=== PATIENT | female | born 1940 | race Caucasian/White ===

== ENCOUNTER 2019-10-01 08:42 | Observation (INO) ==
[2019-10-01] MEDS ORDERED: Isovue-370 500 ML BOTTLE IVP ONE (08:59)
[2019-10-01] MEDS ORDERED: Ondansetron 4 MG/2 ML VIAL IVP ONE (09:20)
[2019-10-01] MEDS ORDERED: *HR* FentaNYL (PF) 100 MCG/2 ML VIAL IVP ONE (09:20)
[2019-10-01 09:59] LABS: Basophils % 0.4 %; Eosinophils % 0.3 %; Hematocrit 41.8 % (35.3-44.9); Hemoglobin 13.6 g/dL (11.5-15.4); Immature Granulocytes % 0.3 % (0-4); Lymphocytes # 1.3 K/mcL (0.6-4.6); Lymphocytes % 13.9 %; Mean Corpuscular HGB Conc 32.5 g/dL (31.6-35.5); Mean Corpuscular Volume 95.2 fL (83.0-100.0); Mean Platelet Volume 10.2 fL (9.4-12.4); Monocytes # 0.4 K/mcL (0.0-1.3); Monocytes % 4.7 %; Neutrophils # 7.6 K/mcL (1.6-8.9); Platelet Count 166 K/mcL (140-400); Red Blood Count 4.39 M/mcL (3.82-4.97); Red Cell Distribution Width 11.9 % (11.5-14.5); Segmented Neutrophils % 80.4 %; White Blood Count 9.5 K/mcL (4.3-11.1)
[2019-10-01 10:03] LABS: INR 1.6; Prothrombin Time 18.2 Seconds (9.4-12.1)
[2019-10-01 10:06] LABS: Activated Partial Thrombo Time 36.9 Seconds (26.0-36.0)
[2019-10-01 10:20] LABS: Alanine Aminotransferase 253 Units/L (7-52); Albumin/Globulin Ratio 1.5 (1.1-2.2); Alkaline Phosphatase 122 Units/L (34-104); Aspartate Amino Transferase 410 Units/L (13-39); BUN/Creatinine Ratio 41 (6-26); Bilirubin,Direct 0.6 mg/dL (0.0-0.2); Bilirubin,Indirect 0.6 mg/dL (0.0-1.0); Bilirubin,Total 1.2 mg/dL (0.3-1.0); Blood Urea Nitrogen 30 mg/dL (8-23); Carbon Dioxide 27 mEq/L (23-29); Chloride 106 mEq/L (98-107); Globulin 2.7 g/dL (2.4-3.5); Glucose 113 mg/dL (70-105); Lipase 37 Units/L (11-82); Osmolality,Calculated 299 (280-300); Sodium 141 mEq/L (136-145); Total Protein 6.7 g/dL (6.4-8.9); Troponin I < 0.03 ng/mL (< 0.04); eGFR For African Americans > 60 (> 60); eGFR For Non-African Americans > 60 (> 60)
[2019-10-01] MEDS ORDERED: Aspirin 81 MG TAB.CHEW PO STA (12:00)
[2019-10-01] MEDS ORDERED: Naloxone 0.4 MG/ML INJ IVP PRN (12:48)
[2019-10-01] MEDS ORDERED: Ondansetron 4 MG/2 ML VIAL IVP PRN (12:48)
[2019-10-01] MEDS ORDERED: Acetaminophen 325 MG TABLET PO PRN (12:49)
[2019-10-01] MEDS ORDERED: *HR* Metoprolol 5 MG/5 ML VIAL IVP PRN (13:58)
[2019-10-01] MEDS: 0.9 % Sodium Chloride 1,000 ML IVC SCH (15:30)
[2019-10-01] MEDS: Gabapentin 300 MG CAPSULE PO SCH (20:46)
[2019-10-01] MEDS: rOPINIRole 0.25 MG TABLET PO SCH (20:46)
[2019-10-02] MEDS: 0.9 % Sodium Chloride 1,000 ML IVC SCH ×2 (01:12→11:29)
[2019-10-02 01:49] LABS: Basophils # 0.1 K/mcL (0.0-0.2); Basophils % 0.7 %; Eosinophils # 0.1 K/mcL (0.0-0.6); Eosinophils % 1.8 %; Hematocrit 36.6 % (35.3-44.9); Immature Granulocytes % 0.1 % (0-4); Lymphocytes # 1.7 K/mcL (0.6-4.6); Lymphocytes % 23.3 %; Mean Corpuscular HGB Conc 32.8 g/dL (31.6-35.5); Mean Corpuscular Hemoglobin 30.9 pg (28.0-33.3); Mean Corpuscular Volume 94.3 fL (83.0-100.0); Mean Platelet Volume 10.5 fL (9.4-12.4); Monocytes # 0.6 K/mcL (0.0-1.3); Monocytes % 7.6 %; Neutrophils # 4.8 K/mcL (1.6-8.9); Platelet Count 149 K/mcL (140-400); Red Blood Count 3.88 M/mcL (3.82-4.97); Red Cell Distribution Width 12.4 % (11.5-14.5); Segmented Neutrophils % 66.5 %; White Blood Count 7.2 K/mcL (4.3-11.1)
[2019-10-02 02:11] LABS: BUN/Creatinine Ratio 24 (6-26); Blood Urea Nitrogen 16 mg/dL (8-23); Calcium 8.5 mg/dL (8.6-10.3); Carbon Dioxide 27 mEq/L (23-29); Chloride 110 mEq/L (98-107); Glucose 96 mg/dL (70-105); Magnesium 1.9 mg/dL (1.6-2.6); Osmolality,Calculated 297 (280-300); Phosphorous 3.2 mg/dL (2.7-4.5); Potassium 3.7 mEq/L (3.5-5.1); Sodium 143 mEq/L (136-145); eGFR For African Americans > 60 (> 60); eGFR For Non-African Americans > 60 (> 60)
[2019-10-02 02:12] LABS: Albumin 3.6 g/dL (3.5-5.7); Albumin/Globulin Ratio 1.6 (1.1-2.2); Bilirubin,Direct 0.3 mg/dL (0.0-0.2); Bilirubin,Indirect 0.7 mg/dL (0.0-1.0); Globulin 2.2 g/dL (2.4-3.5); Total Protein 5.8 g/dL (6.4-8.9)
[2019-10-02 09:19] LABS: Hepatitis B Surface Antigen Nonreactive (Nonreactive)
[2019-10-02] MEDS: Gabapentin 300 MG CAPSULE PO SCH (09:44)
[2019-10-02 09:48] LABS: Hepatitis C Virus Antibody Nonreactive (Nonreactive)
[2019-10-02 09:49] LABS: Hepatitis A Antibody IgM Nonreactive (Nonreactive)
[2019-10-02] MEDS ORDERED: Nitroglycerin 0.4 MG TAB.SUBL SL PRN (20:13)
[2019-10-02] MEDS ORDERED: Gabapentin 300 MG CAPSULE PO SCH (21:00)
[2019-10-02] MEDS ORDERED: Ibuprofen 800 MG TABLET PO ONE (22:08)
[2019-10-02] MEDS: *HR* Heparin 5,000 UNIT/ML VIAL SQ SCH (22:18)
[2019-10-02] MEDS: rOPINIRole 0.25 MG TABLET PO SCH (22:23)
[2019-10-03] MEDS: 0.9 % Sodium Chloride 1,000 ML IVC SCH ×4 (01:28→20:50)
[2019-10-03 05:27] LABS: Basophils % 0.4 %; Eosinophils # 0.1 K/mcL (0.0-0.6); Eosinophils % 1.6 %; Hemoglobin 11.2 g/dL (11.5-15.4); Immature Granulocytes % 0.3 % (0-4); Lymphocytes # 1.8 K/mcL (0.6-4.6); Lymphocytes % 26.7 %; Mean Platelet Volume 10.4 fL (9.4-12.4); Monocytes # 0.6 K/mcL (0.0-1.3); Monocytes % 8.4 %; Neutrophils # 4.2 K/mcL (1.6-8.9); Platelet Count 136 K/mcL (140-400); Red Blood Count 3.61 M/mcL (3.82-4.97); Red Cell Distribution Width 12.3 % (11.5-14.5); Segmented Neutrophils % 62.6 %; White Blood Count 6.7 K/mcL (4.3-11.1)
[2019-10-03 05:34] LABS: Alanine Aminotransferase 253 Units/L (7-52); Albumin 3.5 g/dL (3.5-5.7); Albumin/Globulin Ratio 1.6 (1.1-2.2); Alkaline Phosphatase 150 Units/L (34-104); Aspartate Amino Transferase 169 Units/L (13-39); BUN/Creatinine Ratio 14 (6-26); Bilirubin,Direct 1.2 mg/dL (0.0-0.2); Bilirubin,Indirect 0.8 mg/dL (0.0-1.0); Blood Urea Nitrogen 10 mg/dL (8-23); Calcium 8.5 mg/dL (8.6-10.3); Carbon Dioxide 27 mEq/L (23-29); Chloride 112 mEq/L (98-107); Globulin 2.2 g/dL (2.4-3.5); Glucose 107 mg/dL (70-105); Osmolality,Calculated 298 (280-300); Potassium 3.6 mEq/L (3.5-5.1); Sodium 144 mEq/L (136-145); Total Protein 5.7 g/dL (6.4-8.9); eGFR For African Americans > 60 (> 60); eGFR For Non-African Americans > 60 (> 60)
[2019-10-03] MEDS: *HR* Heparin 5,000 UNIT/ML VIAL SQ SCH ×3 (06:11→22:49)
[2019-10-03] MEDS ORDERED: Morphine Sulfate 2 MG/ML SYRINGE IVP PRN (08:27)
[2019-10-03] MEDS ORDERED: Ondansetron 4 MG/2 ML VIAL IVP ONE ×2 (08:27→13:53)
[2019-10-03] MEDS ORDERED: *HR* Propofol 200 MG/20 ML VIAL IVP ONE (08:47)
[2019-10-03] MEDS ORDERED: *HR* FentaNYL (PF) 100 MCG/2 ML VIAL ONE (08:47)
[2019-10-03] MEDS ORDERED: *HR* Rocuronium Bromide 50 MG/5 ML VIAL ONE (08:51)
[2019-10-03] MEDS ORDERED: Lidocaine -MPF 2% 2 ML VIAL ONE ×2 (08:51→08:56)
[2019-10-03] MEDS ORDERED: Dexamethasone 4 MG/ML VIAL ONE (08:51)
[2019-10-03] MEDS ORDERED: Heparin 1,000 UNITS/500 mL 500 ML ONE (08:51)
[2019-10-03] MEDS ORDERED: Ondansetron 4 MG/2 ML VIAL ONE (08:51)
[2019-10-03] MEDS ORDERED: *HR* Succinylcholine 200 MG/10 ML VIAL IVP ONE (08:51)
[2019-10-03] MEDS ORDERED: *HR* Vasopressin 20 UNIT/ML VIAL ONE (09:30)
[2019-10-03] MEDS ORDERED: cefOXitin 2,000 MG in 0.9 % Sodium Chloride Mini Bag 100 ML IVPB ONE (09:52)
[2019-10-03] MEDS ORDERED: Famotidine 20 MG/2 ML VIAL ONE (09:58)
[2019-10-03] MEDS ORDERED: CefOXitin 2,000 MG VIAL ONE (10:01)
[2019-10-03] MEDS ORDERED: Ringers Solution, Lactated 1,000 ML ONE (11:29)
[2019-10-03] MEDS ORDERED: *HR* Metoprolol 5 MG/5 ML VIAL IVP PRN (13:53)
[2019-10-03] MEDS ORDERED: Nitroglycerin 0.4 MG TAB.SUBL SL PRN (13:53)
[2019-10-03] MEDS ORDERED: Naloxone 0.4 MG/ML INJ IVP PRN (13:53)
[2019-10-03] MEDS ORDERED: Acetaminophen 325 MG TABLET PO PRN (13:53)
[2019-10-03] MEDS ORDERED: *HR* Heparin 5,000 UNIT/ML VIAL SQ SCH (14:00)
[2019-10-03] MEDS ORDERED: Gabapentin 300 MG CAPSULE PO SCH (21:00)
[2019-10-03] MEDS ORDERED: rOPINIRole 0.25 MG TABLET PO SCH (21:00)
[2019-10-04 03:24] LABS: Basophils % 0.2 %; Hematocrit 34.7 % (35.3-44.9); Hemoglobin 11.2 g/dL (11.5-15.4); Immature Granulocytes % 0.3 % (0-4); Lymphocytes # 1.5 K/mcL (0.6-4.6); Lymphocytes % 16.5 %; Mean Corpuscular HGB Conc 32.3 g/dL (31.6-35.5); Mean Corpuscular Hemoglobin 31.1 pg (28.0-33.3); Mean Corpuscular Volume 96.4 fL (83.0-100.0); Mean Platelet Volume 10.2 fL (9.4-12.4); Monocytes # 0.7 K/mcL (0.0-1.3); Monocytes % 7.7 %; Platelet Count 140 K/mcL (140-400); Red Cell Distribution Width 12.5 % (11.5-14.5); Segmented Neutrophils % 75.3 %; White Blood Count 9.3 K/mcL (4.3-11.1)
[2019-10-04 03:44] LABS: Alanine Aminotransferase 317 Units/L (7-52); Albumin 3.6 g/dL (3.5-5.7); Albumin/Globulin Ratio 1.8 (1.1-2.2); Alkaline Phosphatase 202 Units/L (34-104); Aspartate Amino Transferase 216 Units/L (13-39); BUN/Creatinine Ratio 12 (6-26); Bilirubin,Direct 0.4 mg/dL (0.0-0.2); Bilirubin,Indirect 0.7 mg/dL (0.0-1.0); Bilirubin,Total 1.1 mg/dL (0.3-1.0); Blood Urea Nitrogen 8 mg/dL (8-23); Calcium 8.5 mg/dL (8.6-10.3); Carbon Dioxide 25 mEq/L (23-29); Chloride 110 mEq/L (98-107); Glucose 112 mg/dL (70-105); Magnesium 1.9 mg/dL (1.6-2.6); Osmolality,Calculated 293 (280-300); Potassium 3.6 mEq/L (3.5-5.1); Sodium 142 mEq/L (136-145); Total Protein 5.6 g/dL (6.4-8.9); eGFR For African Americans > 60 (> 60); eGFR For Non-African Americans > 60 (> 60)
[2019-10-04] MEDS: 0.9 % Sodium Chloride 1,000 ML IVC SCH (04:00)
[2019-10-04] MEDS: *HR* Heparin 5,000 UNIT/ML VIAL SQ SCH (06:07)
[2019-10-04 07:04] VITALS: BP 121/65
[2019-10-05] MEDS ORDERED: *HR* Rivaroxaban 10 MG TABLET PO SCH (17:00)
== END 2019-10-04 10:41 | disposition home health service (06) ==
LOC: EMEROOARM 08:42 → 3ANU 08:42 → SUATTDRO 12:57 → 3ANU 14:18
PROVIDERS: ADMIT Student in an Organized Health Care Education/Training Program; ATTEND Pharmacist